=== PATIENT | female | born 1985 | race Caucasian/White ===

== ENCOUNTER 2017-05-20 01:28 | Emergency (ER) | payer OTHER ==
[~2017-05-20] VITALS: Ht 172.7 cm; Wt 56.7 kg
[2017-05-20 01:33] VITALS: BP 120/75
[2017-05-20] MEDS ORDERED: CARISOPRODOL 350 MG TABLET PO ONE (02:00)
[2017-05-20] MEDS ORDERED: IBUPROFEN 400 MG TABLET PO ONE (02:00)
[2017-05-20] MEDS ORDERED: DEXAMETHASONE SOD PHOSPHATE 4 MG/ML VIAL IM ONE (02:00)
[2017-05-20] MEDS ORDERED: DEXAMETHASONE SOD PHOSPHATE 10 MG/ML VIAL ONE (02:09)
[2017-05-20] MEDS ORDERED: CARISOPRODOL 350 MG TABLET ONE (02:09)
[2017-05-20] MEDS ORDERED: IBUPROFEN 400 MG TABLET ONE (02:10)
[2017-05-20] MEDS ORDERED: ONDANSETRON HCL/PF 4 MG/2 ML VIAL ONE (02:17)
[2017-05-20] MEDS ORDERED: MORPHINE SULFATE INJ 4 MG/ML DISP.SYRIN ONE (02:17)
[2017-05-20] MEDS ORDERED: ONDANSETRON 4 MG TAB.RAPDIS ONE (02:18)
[2017-05-20] MEDS ORDERED: MORPHINE SULFATE INJ 2 MG/ML DISP.SYRIN IM ONE (03:00)
[2017-05-20] MEDS ORDERED: ONDANSETRON 4 MG TAB.RAPDIS SL ONE (03:00)
--- NOTE | 2017-05-20 03:06 | NUR ---
Patient discharged to home in stable condition. Written and verbal after care instructions given. Patient verbalizes understanding of instruction. PT TOOK AN UBER HOME. VSS. PT AMBULATED OUT WITH A SLOW STEADY GAIT.
== END 2017-05-20 03:08 | disposition home or self-care (01) ==
LOC: ER 01:34
DX: M54.5 Low back pain (principal); F32.9 Major depressive disorder, single episode, unspecified
CPT/HCPCS: A4606; J1100; J2270; J2405; Q0162; Z7610

== ENCOUNTER 2017-06-16 02:16 | Emergency (ER) | payer OTHER ==
[~2017-06-16] VITALS: Ht 172.7 cm; Wt 69.9 kg
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
[2017-06-16] MEDS ORDERED: HYDROCODONE/APAP 10/325MG 1 EA TABLET ONE (02:43)
[2017-06-16] MEDS ORDERED: SILVER SULFADIAZINE CREAM 25 GM TUBE ONE (02:43)
[2017-06-16] MEDS ORDERED: ONDANSETRON HCL/PF 4 MG/2 ML VIAL ONE ×2 (02:48→04:00)
[2017-06-16] MEDS: SILVER SULFADIAZINE CREAM 25 GM TUBE TP ONE (02:54)
[2017-06-16] MEDS: ONDANSETRON HCL/PF 4 MG/2 ML VIAL IM ONE ×2 (02:54→04:05)
[2017-06-16] MEDS: HYDROCODONE/APAP 10/325MG 1 EA TABLET PO ONE (03:14)
--- NOTE | 2017-06-16 04:05 | NUR ---
Patient discharged to home in stable condition. Written and verbal after care instructions given. Patient verbalizes understanding of instruction. ambulatory with a steady gait noted. pt aaox4 no acute distress noted, resp even and unlabored. advice pt not to drive or operate any machinery due to pt was given narcotic medicine. pt verbalize understanding.
[2017-06-16 04:06] VITALS: BP 124/86
== END 2017-06-16 04:06 | disposition home or self-care (01) ==
LOC: ER 02:21
DX: T21.53XA Corrosion of first degree of upper back, initial encounter (principal); F41.9 Anxiety disorder, unspecified; T65.891A Toxic effect of other specified substances, accidental (unintentional), initial encounter; Y92.89 Other specified places as the place of occurrence of the external cause
CPT/HCPCS: A4606; A6253; J2405; Z7610

== ENCOUNTER 2017-06-28 23:23 | Emergency (ER) | payer OTHER ==
[~2017-06-28] VITALS: Ht 167.6 cm; Wt 59.0 kg
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
--- NOTE | 2017-06-28 23:32 | NUR ---
EZRA GREER AT BEDSIDE FOR EVAL.
--- NOTE | 2017-06-28 23:53 | NUR ---
IV STARTED ON LEFT FA 20G, GOOD BLOOD RETURN, LABS AND URINE SENT TO LAB
[2017-06-28 23:56] LABS: BASOPHILS % (AUTO) 0.2 % (0.0-2.0); EOSINOPHILS % (AUTO) 0.5 % (0.0-6.0); HEMATOCRIT 40 % (33-45); HEMOGLOBIN 13.3 g/dL (11.5-14.8); LYMPHOCYTES # (AUTO) 2.4 /CMM (0.8-4.8); LYMPHOCYTES % (AUTO) 31.1 % (20.0-44.0); MEAN CORPUSCULAR HEMOGLOBIN 31 PG (26.0-33.0); MEAN CORPUSCULAR HGB CONC 34 g/dl (31.0-36.0); MEAN CORPUSCULAR VOLUME 91 fL (82-100); MONOCYTES # (AUTO) 0.6 /CMM (0.1-1.30); MONOCYTES % (AUTO) 7.7 % (2.0-12.0); NEUTROPHILS # (AUTO) 4.7 /CMM (1.8-8.9); NEUTROPHILS % (AUTO) 60.5 % (43.0-81.0); PLATELET COUNT (AUTO) 273 /CMM (150-450); RDW COEFFICIENT OF VARIATION 12.8 (11.5-15.0); RED BLOOD CELL COUNT(AUTO) 4.35 MIL/uL (4.0-5.2); WHITE BLOOD COUNT (AUTO) 7.8 K/uL (4.3-11.0)
[2017-06-28] MEDS ORDERED: ONDANSETRON HCL/PF 4 MG/2 ML VIAL ONE (23:56)
[2017-06-28] MEDS ORDERED: HYDROMORPHONE 1 MG/1 ML DISP.SYRIN ONE (23:57)
[2017-06-29] MEDS ORDERED: HYDROMORPHONE INJ 2 MG/ML DISP.SYRIN IV ONE
[2017-06-29] MEDS ORDERED: IV NS 0.9% 1,000 ML BAG IV ONE
[2017-06-29] MEDS ORDERED: ONDANSETRON HCL/PF 4 MG/2 ML VIAL IVP ONE
[2017-06-29 00:07] LABS: APPEARANCE,URINE CLEAR (CLEAR); BILIRUBIN,URINE NEGATIVE (NEGATIVE); BLOOD, URINE NEGATIVE Ery/uL (NEGATIVE); KETONES,URINE NEGATIVE (NEGATIVE); LEUKOCYTE ESTERASE ,URINE NEGATIVE (NEGATIVE); NITRITE, URINE NEGATIVE (NEGATIVE); PH,URINE 7.5 (5.0-8.0); PROTEIN,URINE NEGATIVE (NEGATIVE); UGLUCOSE NEGATIVE (NEGATIVE); UROBILINOGEN,URINE 0.2 EU/dL (0.2)
[2017-06-29 00:07] LABS: CALCIUM, SERUM 9.4 mg/dL (8.5-10.1); CARBON DIOXIDE 26 mmol/L (21-32); CHLORIDE 105 mmol/L (98-107); CREATININE 0.8 mg/dL (0.6-1.3); GLUCOSE 104 mg/dL (74-106); POTASSIUM 4.2 mmol/L (3.5-5.1); SODIUM SERUM 141 mmol/L (136-145); UREA NITROGEN, BLOOD 11 mg/dL (7-18)
[2017-06-29 00:10] LABS: COLOR,URINE Light yellow (YELLOW)
[2017-06-29 00:15] LABS: TROPONIN I < 0.017 ng/mL (0.00-0.056)
[2017-06-29 00:21] LABS: D-DIMER 0.19 mg/L(FEU (0.17-0.50); INR 0.97 (0.87-1.13); PROTHROMBIN TIME 10.4 SECS (9.5-12.7)
[2017-06-29] MEDS ORDERED: HYDROMORPHONE 1 MG/1 ML DISP.SYRIN ONE (00:54)
[2017-06-29] MEDS ORDERED: CYCLOBENZAPRINE 10 MG TABLET ONE (00:55)
[2017-06-29] MEDS ORDERED: HYDROMORPHONE 1 MG/1 ML DISP.SYRIN IV ONE (01:00)
[2017-06-29] MEDS ORDERED: CYCLOBENZAPRINE 10 MG TABLET PO ONE (01:00)
--- NOTE | 2017-06-29 01:54 | NUR ---
IV removed. Catheter intact and site benign. Pressure and 4x4 applied to site. No bleeding noted. Patient discharged to home in stable condition. Written and verbal after care instructions given. Patient verbalizes understanding of instruction. ambulatory with a steady gait, pt w/c per request. instructed pt not to drive. pt verbalize understanding. accompanied by boyfriend.
[2017-06-29 02:01] VITALS: BP 126/68
== END 2017-06-29 01:54 | disposition home or self-care (01) ==
LOC: ER 23:24
DX: R07.89 Other chest pain (principal); F41.9 Anxiety disorder, unspecified; N80.9 Endometriosis, unspecified
CPT/HCPCS: 36415; 71010-TC; 80048-TC; 81000-TC; 84484-TC; 85025-TC; 85378-TC; 85730-TC; A4606; J1170; J2405; J7030; Z7610

== ENCOUNTER 2017-12-08 03:45 | Emergency (ER) | payer OTHER ==
[~2017-12-08] VITALS: Ht 172.7 cm; Wt 56.7 kg
[2017-12-08 03:45] VITALS: BP 118/84
[2017-12-08] MEDS ORDERED: ONDANSETRON HCL/PF 4 MG/2 ML VIAL IV ONE (04:30)
[2017-12-08] MEDS ORDERED: ONDANSETRON HCL/PF 4 MG/2 ML VIAL ONE (04:31)
== END 2017-12-08 04:39 | disposition home or self-care (01) ==
LOC: ER 03:46
DX: H10.9 Unspecified conjunctivitis (principal)
CPT/HCPCS: 96372; 99283; A4606; J2405; Z7610